=== PATIENT | female | born 1955 | race Hispanic/Latino ===

== ENCOUNTER 2016-10-22 14:41 | Emergency (ER) | payer BC ==
[~2016-10-22] VITALS: Ht 162.6 cm; Wt 80.0 kg
[~2016-10-22 14:41] MED LIST: BYDUREON SC; GLIMEPIRIDE4 MG PO; HYDROCHLORO25 MG/TAB PO; INVOKANA100 MG PO; KEFLEX500 MG PO; LEVOTHYROXIN75 MCG PO; METFORMIN HCL1000 MG PO
[2016-10-22] MEDS ORDERED: METFORMIN HCL750 MG PO (14:49)
[2016-10-22] MEDS ORDERED: LEVOTHYROXIN88 MC1 PO (14:49)
[2016-10-22] MEDS ORDERED: TRESIBA FL200 UNIT/M SC (14:50)
[2016-10-22] MEDS ORDERED: VICTOZA18 MG/3 ML SC (14:50)
[2016-10-22] MEDS ORDERED: LISINOPRIL10 MG PO (14:51)
[2016-10-22] MEDS ORDERED: ROSUVASTATIN CAL5 MG PO (14:51)
[2016-10-22] MEDS ORDERED: BACTRIM1 TAB PO (14:51)
[2016-10-22] MEDS ORDERED: PLAVIX75 MG PO (14:51)
[2016-10-22] MEDS ORDERED: ASPIRIN81 MG PO (14:52)
[2016-10-22] MEDS ORDERED: TRAMADOL HYDROC50 MG PO (15:41)
[2016-10-22 16:05] VITALS: BP 107/60
== END 2016-10-22 16:05 | disposition home or self-care (01) | DRG 563 ==
LOC: ED 14:41
DX: S93.401A Sprain of unspecified ligament of right ankle, initial encounter (principal); I10 Essential (primary) hypertension; E11.9 Type 2 diabetes mellitus without complications; X58.XXXA Exposure to other specified factors, initial encounter; Z79.4 Long term (current) use of insulin

== ENCOUNTER 2017-09-30 08:48 | Observation (INO) | payer BC ==
[~2017-09-30] VITALS: Ht 162.6 cm; Wt 89.0 kg
[~2017-09-30 08:48] MED LIST changes: +ASPIRIN81 MG PO; +BACTRIM1 TAB PO; +LEVOTHYROXIN88 MC1 PO; +LISINOPRIL10 MG PO; +METFORMIN HCL750 MG PO; +PLAVIX75 MG PO; +ROSUVASTATIN CAL5 MG PO; +TRAMADOL HYDROC50 MG PO; +TRESIBA FL200 UNIT/M SC; +VICTOZA18 MG/3 ML SC
[2017-09-30 09:25] LABS: HEMATOCRIT 37.5 % (37.0-47.0); HEMOGLOBIN 12.2 g/dl (12.0-16.0); IMMATURE GRANULOCYTES 0.5 % (0.0-1.0); MEAN CELL VOLUME 86.2 fL CALC (80.0-100.0); MEAN CORPUSCULAR HGB CONC 32.5 g/L CALC (32.0-36.0); NEUT# 4.48 thou/uL (2.00-7.15); RED BLOOD COUNT 4.35 mill/uL (4.20-5.60); RED CELL DISTRI WIDTH 12.8 % (11.5-15.5)
[2017-09-30 09:53] LABS: ALBUMIN 4.3 g/dL (3.2-5.0); ALKALINE PHOSPHATASE 92 u/l (38-126); ANION GAP 14 (6-22 (CALC)); BILIRUBIN, TOTAL 0.4 mg/dL (0.0-1.4); BUN 21 mg/dL (8-23); BUN/CREATININE RATIO 27 (12-20 (CALC)); CARBON DIOXIDE 27 mmol/l (22-30); CHLORIDE 103 mmol/l (95-108); CREATININE 0.8 mg/dL (0.5-1.0); GFR > 60 ML/MIN (>=60 (CALC)); GFR FOR AFR.AMER. > 60 ML/MIN (>=60 (CALC)); LIPASE 529 u/l (23-300); SGOT/AST 39 u/l (9-36); SGPT/ALT 57 u/l (11-66); SODIUM 140 mmol/l (137-146)
[2017-09-30 09:57] LABS: POTASSIUM 4.2 mmol/l (3.5-5.1)
[2017-09-30 12:02] VITALS: BP 192/96
[2017-09-30 12:39] VITALS: BP 157/86
[2017-09-30 15:30] VITALS: BP 143/86
[2017-09-30 19:10] VITALS: BP 150/77
[2017-09-30 23:48] VITALS: BP 129/75
[2017-10-01 03:53] VITALS: BP 134/73
[2017-10-01 07:57] VITALS: BP 159/69
[2017-10-01 11:09] VITALS: BP 143/81
[2017-10-01] MEDS ORDERED: MEDDOSEPAK PO (13:07)
[2017-10-01] MEDS ORDERED: MOTRIN800 MG PO (13:09)
[2017-10-01 15:22] VITALS: BP 142/75
== END 2017-10-01 17:07 | disposition home or self-care (01) | DRG 440 ==
LOC: ED 08:48 → ED-I 10:32 → ED 10:49 → MS2 10:50
PROVIDERS: Emergency Medicine; ADMIT Internal Medicine; ATTEND Internal Medicine
DX: K85.90 Acute pancreatitis without necrosis or infection, unspecified (principal); R07.89 Other chest pain; M25.512 Pain in left shoulder; I10 Essential (primary) hypertension; E11.9 Type 2 diabetes mellitus without complications; I25.10 Atherosclerotic heart disease of native coronary artery without angina pectoris; E03.9 Hypothyroidism, unspecified; E78.1 Pure hyperglyceridemia; E78.5 Hyperlipidemia, unspecified; Z95.5 Presence of coronary angioplasty implant and graft; Z79.4 Long term (current) use of insulin
CPT/HCPCS: G0378

== ENCOUNTER 2018-12-21 12:42 | Emergency (ER) | payer BC ==
[~2018-12-21] VITALS: Ht 162.6 cm; Wt 84.4 kg
[~2018-12-21 12:42] MED LIST changes: +ASPIRIN LOW DOS81 M1 PO; -ASPIRIN81 MG PO; +MEDDOSEPAK PO; +METFORMIN HCL500 M3 PO; -METFORMIN HCL750 MG PO; +MOTRIN800 MG PO
[2018-12-21 13:34] LABS: HEMATOCRIT 36.8 % (37.0-47.0); HEMOGLOBIN 11.7 g/dl (12.0-16.0); IMMATURE GRANULOCYTES 0.3 % (0.0-5.0); MEAN CELL VOLUME 83.6 fL CALC (80.0-100.0); MEAN CORPUSCULAR HGB 26.6 pG CALC (26.0-32.0); MEAN CORPUSCULAR HGB CONC 31.8 g/L CALC (32.0-36.0); NEUT# 6.76 thou/uL (2.00-7.15); RED BLOOD COUNT 4.4 mill/uL (4.20-5.60); RED CELL DISTRI WIDTH 13.8 % (11.5-15.5)
[2018-12-21 13:52] LABS: ALBUMIN 4.2 g/dL (3.2-5.0); ALKALINE PHOSPHATASE 82 u/l (38-126); ANION GAP 14 (6-22 (CALC)); BILIRUBIN, TOTAL 0.4 mg/dL (0.0-1.4); BUN 16 mg/dL (8-23); BUN/CREATININE RATIO 19 (12-20 (CALC)); CARBON DIOXIDE 25 mmol/l (22-30); CHLORIDE 103 mmol/l (95-108); CREATININE 0.8 mg/dL (0.5-1.0); GFR > 60 ML/MIN (>=60 (CALC)); GFR FOR AFR.AMER. > 60 ML/MIN (>=60 (CALC)); POTASSIUM 3.9 mmol/l (3.5-5.1); SGOT/AST 49 u/l (9-36); SODIUM 138 mmol/l (137-146); TOTAL PROTEIN 7.4 g/dL (6.3-8.2)
[2018-12-21 14:03] LABS: MYOGLOBIN 33 ng/mL (0 - 62)
[2018-12-21 14:21] LABS: URINE BILIRUBIN - DIPSTICK NEGATIVE (NEGATIVE); URINE BLOOD DIPSTICK SMALL (NEGATIVE); URINE COLOR YELLOW; URINE GLUCOSE - DIPSTICK >=1000 mg/dL (NEGATIVE); URINE KETONE NEGATIVE (NEGATIVE); URINE LEUK ESTERASE NEGATIVE (NEGATIVE); URINE PROTEIN - DIPSTICK 30 mg/dL (NEG-TRACE); URINE UROBILINOGEN - DIPSTICK 0.2 E.U./dL (0.2)
[2018-12-21 14:23] LABS: URINE NITRITE - DIPSTICK POSITIVE (Negative)
[2018-12-21 14:29] LABS: URINE BACTERIA MODERATE hpf; URINE RBC 0-2 RBC/hpf (0-5); URINE SQUAMOUS EPITHELIAL CELL FEW EPI/hpf (0-FEW)
[2018-12-21] MEDS ORDERED: BACTRIM DS1 TAB PO (14:57)
[2018-12-21] MEDS ORDERED: MECLIZINE25 MG PO (14:57)
[2018-12-21 15:01] VITALS: BP 143/68
== END 2018-12-21 15:04 | disposition home or self-care (01) | DRG 149 ==
LOC: ED 12:42
PROVIDERS: Family Medicine
DX: R42 Dizziness and giddiness (principal); N39.0 Urinary tract infection, site not specified; R51 Headache; E11.65 Type 2 diabetes mellitus with hyperglycemia; I10 Essential (primary) hypertension; I25.10 Atherosclerotic heart disease of native coronary artery without angina pectoris; Z79.4 Long term (current) use of insulin

== ENCOUNTER 2019-07-07 | Emergency (ER) | payer BC ==
[~2019-07-07] MED LIST changes: +BACTRIM DS1 TAB PO; +MECLIZINE25 MG PO
[2019-07-07] MEDS ORDERED: OZEMPIC2 MG/1.5 M (12:27)
[2019-07-07] MEDS ORDERED: JANUVIA100 MG PO (12:29)
[2019-07-07 12:37] LABS: HEMATOCRIT 34.8 % (37.0-47.0); HEMOGLOBIN 10.9 g/dl (12.0-16.0); IMMATURE GRANULOCYTES 0.3 % (0.0-5.0); MEAN CELL VOLUME 82.3 fL CALC (80.0-100.0); MEAN CORPUSCULAR HGB 25.8 pG CALC (26.0-32.0); MEAN CORPUSCULAR HGB CONC 31.3 g/dL CAL (32.0-36.0); NEUT# 5.43 thou/uL (2.00-7.15); RED BLOOD COUNT 4.23 mill/uL (4.20-5.60); RED CELL DISTRI WIDTH 13.5 % (11.5-15.5)
[2019-07-07 12:50] LABS: ALBUMIN 4.3 g/dL (3.2-5.0); ALKALINE PHOSPHATASE 65 u/l (38-126); ANION GAP 15 (6-22 (CALC)); BILIRUBIN, TOTAL 0.4 mg/dL (0.0-1.4); BUN 19 mg/dL (8-23); BUN/CREATININE RATIO 23 (12-20 (CALC)); CARBON DIOXIDE 24 mmol/l (22-30); CHLORIDE 104 mmol/l (95-108); CREATININE 0.8 mg/dL (0.5-1.0); GFR > 60 ML/MIN (>=60 (CALC)); GFR FOR AFR.AMER. > 60 ML/MIN (>=60 (CALC)); POTASSIUM 3.9 mmol/l (3.5-5.1); SGOT/AST 27 u/l (9-36); SODIUM 139 mmol/l (137-146); TOTAL PROTEIN 7.4 g/dL (6.3-8.2)
[2019-07-07 13:15] LABS: URINE BILIRUBIN - DIPSTICK NEGATIVE (NEGATIVE); URINE BLOOD DIPSTICK NEGATIVE (NEGATIVE); URINE COLOR YELLOW; URINE GLUCOSE - DIPSTICK NEGATIVE (NEGATIVE); URINE KETONE NEGATIVE (NEGATIVE); URINE LEUK ESTERASE NEGATIVE (NEGATIVE); URINE NITRITE - DIPSTICK NEGATIVE (Negative); URINE PROTEIN - DIPSTICK NEGATIVE (NEG-TRACE); URINE SPECIFIC GRAVITY 1.025; URINE UROBILINOGEN - DIPSTICK 0.2 E.U./dL (0.2)
[2019-07-07] MEDS ORDERED: VENTOLIN HFA IN (13:49)
== END 2019-07-07 13:58 | disposition home or self-care (01) | DRG 203 ==
DX: J45.901 Unspecified asthma with (acute) exacerbation (principal); I10 Essential (primary) hypertension; E11.9 Type 2 diabetes mellitus without complications; I25.10 Atherosclerotic heart disease of native coronary artery without angina pectoris; Z79.4 Long term (current) use of insulin

== ENCOUNTER 2022-07-05 14:11 | Emergency (ER) | payer MEDICARE ==
[~2022-07-05] VITALS: Ht 162.6 cm; Wt 81.6 kg
[~2022-07-05 14:11] MED LIST changes: +JANUVIA100 MG PO; +OZEMPIC2 MG/1.5 M; +VENTOLIN HFA IN
[2022-07-05] MEDS ORDERED: ZOFRAN4 MG/TAB PO (17:06)
[2022-07-05 17:09] VITALS: BP 142/76
== END 2022-07-05 17:14 | disposition home or self-care (01) ==
LOC: ED 14:11
DX: J06.9 Acute upper respiratory infection, unspecified (principal); I10 Essential (primary) hypertension; E11.9 Type 2 diabetes mellitus without complications; I25.10 Atherosclerotic heart disease of native coronary artery without angina pectoris; Z79.84 Long term (current) use of oral hypoglycemic drugs; Z20.822 Contact with and (suspected) exposure to COVID-19